=== PATIENT | female | born 1955 | race Caucasian/White ===

== ENCOUNTER 2021-12-15 18:58 | Emergency (ER) | payer MEDICARE, OTHER ==
[~2021-12-15] VITALS: Ht 167.6 cm; Wt 86.2 kg
[2021-12-15] MEDS ORDERED: JANU50TA8 PO (19:09)
[2021-12-15] MEDS ORDERED: LANTINJ4 SC (19:09)
[2021-12-15] MEDS ORDERED: ASPI81CH33 PO (19:09)
[2021-12-15 20:36] VITALS: BP 152/87
== END 2021-12-15 20:43 | disposition home or self-care (01) ==
LOC: M ED 18:58
DX: S93.502A Unspecified sprain of left great toe, initial encounter (principal); W22.8XXA Striking against or struck by other objects, initial encounter; Y92.89 Other specified places as the place of occurrence of the external cause; E11.9 Type 2 diabetes mellitus without complications; I10 Essential (primary) hypertension; Z79.84 Long term (current) use of oral hypoglycemic drugs; Z79.82 Long term (current) use of aspirin; Z79.4 Long term (current) use of insulin; Z88.1 Allergy status to other antibiotic agents; Z88.8 Allergy status to other drugs, medicaments and biological substances